=== PATIENT | female | born 1980 | race Caucasian/White ===

== ENCOUNTER 2023-08-09 16:51 | Emergency (ER) | payer OTHER, SELFPAY ==
[2023-08-09 17:07] VITALS: BP 132/72; PULSE 90; RESP 18; TEMP 36.7; O2SAT 100
--- NOTE | 2023-08-09 17:13 | ED.GENADUL_ITS ---
Discharge Plan Disposition Patient Disposition: Home Discharge Details Clinical Impression: Effusion of right knee Primary Care Provider: Unknown,Unknown ED Provider: Remington Marlow Discharge Instructions Instructions: Knee Sprain (ED) Additional Instructions: You were seen in the emergency department for your right knee pain, there is a small amount of increased joint fluid indicating a possible sprain or internal injury of the knee like a bursitis versus meniscus tear. Please use the crutches and knee immobilizer as needed, rest, ice, compress and elevate, please use therapeutic dosing of Tylenol (acetamenophen) & Advil (ibuprofen) in an alte rnating fashion as follows: Take 1000mg of Tylenol every 6 hours without missing doses- that is 4 times per day. [place] in between the Tylenol dosings, take 400-600mg of Advil also on a 6 hour schedule, that is also 4 times per day. The daily maximum dosing of Tylenol is 4000mg, and the daily maximum dosing of Advil is 2400mg. This is safe to do for weeks. Please note that some common cold medications & prescription pain medications may contain acetamenophen and you need to read OTC drug labels and factor that in to maximum daily dosings. Please reach out to your primary care provider and make an appointment at orthopedic office for evaluation in 1 to 2 weeks if no resolution of pain. Referrals: [facility] [Provider Group] Discharge Data Discharge Date/Time-TO BE ENTERED AT DEPARTURE: 08/09/23 18:58 Medical Decision Making This dictation utilizes [id number] dictation software and may contain unedited grammatical errors. 42 y/o F presents to ED today with a chief complaint of R knee pain, atraumatic. Onset and characteristics include two weeks of daily knee pain, worse after long shifts on her feet, denies prior injury, no redness/warmth, denies gout history. Patients' medical history: noncontributory. Family and social history: noncontributory. Pertinent exam findings / vital signs include R LE: No redness or warmth to the right knee, diffuse tenderness to palpation without crepitus, no varus valgus forces causing tenderness or laxity, Kristi test negative, Nehemias positive in the lateral compartment, no pain with passive range of motion. Differential / pathologies of concern include R knee sprain, Internal knee injury, NOT fracture. Diagnostic studies of: -XR R Knee - no fracture seen, small effusion. Interventions of: -hinged knee brace & crutches to use PRN. ED Course/Assessment/Plan: Counseled the patient on a possible internal knee injury but to aggressively treat with RICE protocol and max dosing of Tylenol and ibuprofen, recommend they follow-up with orthopedic visit if pain is persistent past 2 weeks for possible evaluation for any internal knee injury like a meniscus injury. Findings not consistent with septic arthritis, no redness or warmth to touch, no pain with passive range of motion, able to bear weight. Disposition of Effusion of Right Knee. Patient verbalized understanding of the plan and return to ED criteria and engaged in shared decision making. Medical Records Medical records reviewed: Yes I reviewed the patient's medical records. Imaging Data Radiologic Study: Imaging: X-Ray Radiologist's impression: EXAM: XR KNEE RT 3V AP,LAT,LUISA CLINICAL HISTORY: R knee pain, 2 weeks. TECHNIQUE: 2D digital imaging was performed. COMPARISON: No exams were available for comparison FINDINGS: 3 views No evidence of acute fracture. Small amount of increased joint fluid noted. No degenerative changes. No osseous lesions. No osteochondral defects. Bone density normal. IMPRESSION: No acute osseous findings. Small amount of increased joint fluid. HPI General Date/Time Provider Initiated Documentation: 08/09/23 17:04 . HPI Narrative: 42 year-old female presents to ED today by POV/ambulating with antalgic gait with her daughter with a chief complaint of R knee pain, works on her feet, states no trauma but having worsening knee pain, denies old injury with onset about two weeks ago. Quality described as aching with weight-bearing, no radiation to redness, warmth to touch, calf swelling/skin changes, inability to ambulate, medial thigh tenderness. Severity is described as severe. Palliating factors include ibuprofen is helping and the patient is able to complete work days. Provoking factors include nothing specific. Events leading up to the incident/Associated Symptoms: Patient has not seen primary care or orthopedics for this issue. Patient not anticoagulated. Related Data Allergies Allergy/AdvReac Type Severity Reaction Status Date / Time aspirin AdvReac Intermediate Unverified 08/09/23 18:18 General Stated Complaint: Orthopedic DUDLEY: 4 Review of Systems All systems reviewed & are unremarkable except as noted in HPI and below PFSH All Active Problems (Updated 08/09/23 @ 18:38 by JESSICA Prather) Effusion of right knee (Acute) Social History Smoking/Tobacco Use Status: Current-Occasional Smoking risk assessment performed?: Yes Alcohol Intake: current Alcohol Intake frequency: holidays/special occasions only Alcohol type: beer Substance use type: does not use Housing: house Do you feel safe at home: Yes Do you feel safe in your relationship?: Yes Exam Narrative Exam Narrative: GENERAL APPEARANCE: Well-nourished, non-toxic, awake and alert, atraumatic, no acute distress. SKIN: Warm, pink, dry, intact, without rashes/lesions/ulcerations. HEAD: Normocephalic, atraumatic, normal hair distribution for gender/age. EYES: Pupils PERRLA, EOMs intact without nystagmus, normal conjunctiva, no exudates on lids/lashes. ENT: Nares patent, no circumoral cyanosis, no facial swelling NECK: Supple, trachea midline, painless cervical ROM. LUNGS/CHEST: Non-labored respirations, normal A/P diameter, symmetrical expansion, no chest wall deformity HEART (CV/PV): No peripheral edema, no JVD. ABDOMEN: Soft, non-distended, no guarding. MSK: Normal ROM, no swelling/deformity to bilateral UEs or LEs, moving all extremities without weakness, no cyanosis, spine midline without tenderness, normal curvature. R LE: No redness or warmth to the right knee, diffuse tenderness to palpation without crepitus, no varus valgus forces causing tenderness or laxity, Kristi test negative, Nehemias positive in the lateral compartment, no pain with passive range of motion NEURO: Mental Status AAOx4 - alert to person, place, time, events No facial droop, no forehead involvement. Motor: No focal weakness - strength 5/5 in bilateral UEs and LEs, proximal and distal, symmetric. Sensory: sensation intact to light touch globally. Gait normal: patient ambulated without ataxia into ED room, mild antalgia to R leg PSYCH: euthymic, cooperative, pleasant, appropriate speech Course Vital Signs Vital signs: Vital Signs Temperature 36.7 C 08/09/23 17:07 Pulse 90 08/09/23 17:07 Respiratory Rate 18 08/09/23 17:07 Blood Pressure 132/72 08/09/23 17:07 Pulse Oximetry 100 08/09/23 17:07 Temperature 36.7 C 08/09/23 17:07 Temperature Source Oral 08/09/23 17:07 Pulse 90 08/09/23 17:07 Respiratory Rate 18 08/09/23 17:07 Blood Pressure 132/72 08/09/23 17:07 Blood Pressure Position Sitting 08/09/23 17:07 Pulse Oximetry 100 08/09/23 17:07 Oxygen Delivery Method Room Air 08/09/23 17:07 Oxygen Flow Rate 0 08/09/23 17:07 Pain Level 10 08/09/23 17:07
--- NOTE | 2023-08-09 18:26 | DI.RAD_ITS ---
Exam(s) XR KNEE RT 3V AP,LAT,LUISA EXAM: XR KNEE RT 3V AP,LAT,LUISA CLINICAL HISTORY: R knee pain, 2 weeks. TECHNIQUE: 2D digital imaging was performed. COMPARISON: No exams were available for comparison FINDINGS: 3 views No evidence of acute fracture. Small amount of increased joint fluid noted. No degenerative changes . No osseous lesions. No osteochondral defects. Bone density normal. IMPRESSION: No acute osseous findings. Small amount of increased joint fluid. DATA REPOSITORY: RADIATION DOSE DELIVERED:
--- NOTE | 2023-08-09 18:35 | DI.VRAD_ITS ---
PROCEDURE INFORMATION: Exam: XR Right Knee Exam date and time: 08/09/2023 6:21 PM Age: 42 years old Clinical indication: Right; Patient HX: R knee pain, 2 weeks TECHNIQUE: Imaging protocol: Radiologic exam of the right knee. Views: 3 views. COMPARISON: No relevant prior studies available. FINDINGS: Bones/joints: No acute fracture or subluxation. Trace joint fluid. Soft tissues: Unremarkable. IMPRESSION: 1. No acute bony pathology. 2. Trace joint fluid. Dictated and Authenticated by: Heather Thompson MD. Ordering:PRATIK Macedo MD
--- NOTE | 2023-08-09 18:55 | NUR.NOTE ---
Nursing Note: Pt given crutches and proper use demonstrated. Pt understands and displayed proper use before d/c. Knee hinged immobilize applied before discharge.
--- NOTE | 2023-08-11 13:45 | NUR.NOTE ---
Patient called asking for a work note. JESSICA Wesley did a handwritten one that was sent to be scanned. A copy was mailed to the patient and it was emailed to her place of work. [email or web address]. Nursing Note:
== END 2023-08-09 18:58 | disposition home or self-care (01) ==
PROVIDERS: Emergency Provider Physician Assistant
DX: M25.461 Effusion, right knee (principal)
CPT/HCPCS: 73562; 99283

== ENCOUNTER → 2023-08-22 00:37 | Outpatient (CLI) | payer OTHER, SELFPAY ==
--- NOTE | 2023-08-22 08:30 | DI.MRI_ITS ---
Exam(s) MR LOWER JOINT RT WO EXAM: MR LOWER JOINT RT WO CLINICAL HISTORY: R KNEE INJURY,internal derangement,m23.91. TECHNIQUE: Multiplanar multisequence MRI was performed. COMPARISON: CR,XR XR KNEE RT 3V AP,LAT,LUISA from 08/09/2023 FINDINGS: BONES: Severe edema is present in the lateral femoral condyle. There is no discrete fracture or oste ochondral defect. No visible cortical disruption. No abnormal marrow signal elsewhere. JOINTS: A moderate-sized no evidence of hemarthrosis. Joint effusion is present. Articular cartilage: Patellofemoral joint: Articular cartilage is unremarkable. Medial femoral tibial joint: Articular cartilage is unremarkable. Lateral femoral tibial joint: Articular cartilage is unremarkable. TENDONS: Extensor mechanism: Unremarkable. Medial retinaculum: Unremarkable. Lateral retinaculum: Intact. Adjacent edema. Popliteus: Unremarkable. MUSCLES: Unremarkable. MENISCI: The medial meniscus is unremarkable. The lateral meniscus is unremarkable. SOFT TISSUES: Edema in the subcutaneous fat. Edema around the medial femoral condyle. On tiny Martínez 's cyst. LIGAMENTS: Anterior Cruciate: Unremarkable. Posterior Cruciate: Intact. Adjacent edema. Medial Collateral:Unremarkable. Lateral Collateral: Surrounding edema but intact. IMPRESSION: Severe marrow edema in the lateral femoral condyle without evidence of discrete fracture or osteochon dral defect. Findings could represent severe contusion. DATA REPOSITORY:
== END ==
PROVIDERS: PCP Neuromusculoskeletal Medicine & OMM; Visit Provider Student in an Organized Health Care Education/Training Program
DX: M25.461 Effusion, right knee (principal)
CPT/HCPCS: 73721

== ENCOUNTER 2023-10-15 13:58 | Outpatient (CLI) | payer OTHER, SELFPAY ==
--- NOTE | 2023-10-15 10:45 | DI.RAD_ITS ---
Exam(s) XR KNEE RT 2V AP,LAT EXAM: XR KNEE RT 2V AP,LAT CLINICAL HISTORY: RIGHT KNEE F/U. TECHNIQUE: 2D digital imaging was performed. Three views. COMPARISON: CR,XR XR KNEE RT 3V AP,LAT,LUISA from 08/09/2023 MR MR LOWER JOINT RT WO from 08/22/2023 FINDINGS: BONES: No discrete fracture is visible. No bony destructive lesion is seen. The bones appear mildly osteopenic. JOINTS: The knee is normally aligned. No joint effusion is seen. The joint spaces are maintained. SOFT TISSUE: Normal. IMPRESSION: No visible fracture. DATA REPOSITORY: RADIATION DOSE DELIVERED:
== END 2023-10-15 13:59 | disposition home or self-care (01) ==
LOC: DIORS 13:59
PROVIDERS: PCP Neuromusculoskeletal Medicine & OMM; Visit Provider Student in an Organized Health Care Education/Training Program
DX: M87.88 Other osteonecrosis, other site (principal); Z47.89 Encounter for other orthopedic aftercare
CPT/HCPCS: 73560

== ENCOUNTER 2023-12-17 11:50 | Outpatient (CLI) | payer OTHER, SELFPAY ==
--- NOTE | 2023-12-17 09:30 | DI.RAD_ITS ---
Exam(s) XR KNEE RT 2V AP,LAT EXAM: XR KNEE RT 2V AP,LAT CLINICAL HISTORY: F/U RIGHT KNEE PAIN. TECHNIQUE: 2D digital imaging was performed. Three views. COMPARISON: CR XR KNEE RT 2V AP,LAT from 10/15/2023 FINDINGS: BONES: No acute fracture is present. No bony destructive lesion is seen. JOINTS: The knee is normally aligned. No joint effusion is seen. SOFT TISSUE: Normal. IMPRESSION: Unremarkable radiographs of the right knee. DATA REPOSITORY: RADIATION DOSE DELIVERED:
== END 2023-12-17 11:51 | disposition home or self-care (01) ==
LOC: DIORS 11:50
PROVIDERS: PCP Neuromusculoskeletal Medicine & OMM; Visit Provider Student in an Organized Health Care Education/Training Program
DX: M25.561 Pain in right knee (principal)
CPT/HCPCS: 73560

== ENCOUNTER → 2024-01-02 00:17 | Outpatient (CLI) | payer OTHER, SELFPAY ==
--- NOTE | 2024-01-02 07:30 | DI.MRI_ITS ---
Exam(s) MR LOWER JOINT RT WO EXAM: MR LOWER JOINT RT WO CLINICAL HISTORY: EVALUATE OSTEONECROSIS RT KNEE, M87.9. TECHNIQUE: Multiplanar multisequence MRI was performed. COMPARISON: MR MR LOWER JOINT RT WO from 08/22/2023 CR XR KNEE RT 2V AP,LAT from 10/15/2023 CR XR KNEE RT 2V AP,LAT from 12/17/2023 FINDINGS: BONES: There is marked marrow edema seen in the proximal tibia and the lateral femoral condyle. Ther e is a subchondral cyst seen in the proximal tibia. JOINTS: Articular cartilage is unremarkable. There is a small amount of fluid in the joint space. TENDONS: Extensor mechanism: Unremarkable. Medial retinaculum: Unremarkable. Lateral retinaculum: Unremarkable. Popliteus: Unremarkable. MUSCLES: Unremarkable. MENISCI: The medial meniscus is unremarkable. The lateral meniscus is unremarkable. SOFT TISSUES: There is edema seen in the soft tissues around the knee particularly medially. There i s a small popliteal cyst. No other focal fluid collection is seen. LIGAMENTS: Anterior Cruciate: Unremarkable. Posterior Cruciate: Unremarkable. Medial Collateral:There is mild hyperintense signal seen around the medial collateral ligament which may represent a sprain. The ligament is intact. Lateral Collateral: Unremarkable. OTHER: IMPRESSION: 1. Marked edema seen in the proximal tibia and the lateral femoral condyle. Differential considerati ons include osteonecrosis, contusion, stress response or arthrosis. No evidence of a fracture is see n. 2. No evidence of a meniscal or ligament tear. Question of a medial collateral ligament sprain. DATA REPOSITORY:
== END ==
PROVIDERS: PCP Neuromusculoskeletal Medicine & OMM; Visit Provider Student in an Organized Health Care Education/Training Program
DX: M87.9 Osteonecrosis, unspecified (principal)
CPT/HCPCS: 73721

== ENCOUNTER 2024-01-09 05:34 | Outpatient (CLI) | payer OTHER, SELFPAY ==
[2024-01-09 11:16] LABS: Abs Immature Grans 0.01 10^3/uL (0.0-0.06); Absolute Basophil Count 0.03 10^3/uL (0.0-0.2); Absolute Eosinophil Count 0.11 10^3/uL (0.0-0.7); Absolute Lymphocyte Count 1.61 10^3/uL (1.2-3.4); Absolute Monocyte Count 0.28 10^3/uL (0.1-0.8); Absolute Neutrophil Count 2.31 10^3/uL (1.2-6.7); Basophils % 0.7 %; Eosinophils % 2.5 %; HGB 12.7 g/dL (11.2-15.7); Immature Grans % 0.2 %; MCH 27.5 pg (27.0-33.0); MCHC 31.8 % (32.0-36.0); MCV 87 fL (80-95); MPV 10.2 fL (8.0-11.0); Monocytes % 6.4 %; Neutrophils % 53.2 %; Platelet Count 193 10^3/uL (130-400); RBC 4.61 10^6/uL (3.93-5.22); RDW 13.1 % (11.7-14.6); RDW-SD 41.5 fL; WBC 4.35 10^3/uL (4.4-10.8)
[2024-01-09 11:20] LABS: ESR 4 mm/hr (0-20)
[2024-01-09 11:29] LABS: INR 1.1 (0.9-1.1); PTT Activated 24.7 sec (23.6-32.8); Prothrombin Time 10.6 sec (9.1-11.1)
[2024-01-09 11:39] LABS: ALT 13 U/L (14-59); AST 10 U/L (15-37); Albumin 3.3 g/dL (3.4-5.0); Alkaline Phosphatase 57 U/L (46-116); Anion Gap 6.7 mmol/L (3-11); BUN 12 mg/dL (7-18); Bilirubin, Total 0.5 mg/dL (0.2-1.0); CO2 27.3 mmol/L (21.0-32.0); Calcium 8.6 mg/dL (8.5-10.1); Chloride 108 mmol/L (98-107); Glucose 104 mg/dL (74-106); Potassium 3.9 mmol/L (3.5-5.1); Sodium 142 mmol/L (136-145); TSH 1.38 uIU/Ml (0.36-3.74); Total Protein 7.1 g/dL (6.4-8.2)
[2024-01-09 11:40] LABS: C-Reactive Protein < 0.50 mg/dL (<or=0.5)
[2024-01-09 11:44] LABS: Hemoglobin A1C 5.3 % (<5.7)
[2024-01-09 12:27] LABS: Vitamin D 25 Total 20.4 ng/mL (30-100)
[2024-01-09 17:47] LABS: Rheumatoid Factor <8.6 IU/mL (<12.0)
[2024-01-09 19:08] LABS: Parathyroid Hormone,Intact 52 pg/mL (19-88)
[2024-01-12 10:50] LABS: Cyclic Citrullinated Peptide <2.5 U/mL (<5.0)
[2024-01-12 11:26] LABS: Lyme Ab w Rflx to Lyme Confirm Positive (Negative)
[2024-01-12 15:12] LABS: ANA Interpretation Negative (Negative)
[2024-01-12 15:51] LABS: Lyme IgG Ab Negative (Negative); Lyme IgM Ab Negative (Negative)
[2024-01-13 15:21] LABS: Anaplasma phagocytophilum Negative (Negative); B. miyamotoi PCR Negative (Negative); Babesia divergens/MO-1 Negative (Negative); Babesia duncani Negative (Negative); Babesia microti Negative (Negative); Ehrlichia chaffeensis Negative (Negative); Ehrlichia ewingii/canis Negative (Negative); Ehrlichia muris eauclairensis Negative (Negative)
== END 2024-01-09 05:35 | disposition home or self-care (01) ==
LOC: LBO 05:34
PROVIDERS: PCP Neuromusculoskeletal Medicine & OMM; Visit Provider Student in an Organized Health Care Education/Training Program
DX: M87.9 Osteonecrosis, unspecified (principal)
CPT/HCPCS: 36415; 80053; 82306; 85652; 86200; 86617; 87798; 83036; 83970; 84443; 85025; 85610; 85730; 86038; 86140; 86431; 86618